=== PATIENT | female | born 1965 | race Caucasian/White ===

== ENCOUNTER 2017-07-23 09:39 | Emergency (ER) | payer OTHER ==
[~2017-07-23] VITALS: Ht 157.5 cm; Wt 85.0 kg
[2017-07-23 09:50] VITALS: Ht 157.5 cm; Wt 85.0 kg
[2017-07-23 11:23] LABS: BASOPHILS % 0.3 % (0.0-2.0); EOSINOPHILS # 0.1 10^3/ul (0.0-0.5); EOSINOPHILS % 0.7 % (0.0-7.0); HEMATOCRIT 34.1 % (37.0-47.0); HEMOGLOBIN 10.4 g/dl (12.0-16.0); LYMPHOCYTES # 1.5 10^3/ul (0.8-2.9); LYMPHOCYTES % 19.1 % (15.0-51.0); MEAN CORPUSCULAR HGB CONC 30.5 g/dl (32.0-37.0); MEAN PLATELET VOLUME 8.7 fl (7.4-10.4); MONOCYTE # 0.7 10^3/ul (0.3-0.9); MONOCYTES % 8.9 % (0.0-11.0); NEUTROPHIL # 5.4 10^3/ul (1.6-7.5); NEUTROPHILS % 70.6 % (39.0-77.0); PLATELET COUNT 477 10^3/UL (140-415); RED BLOOD COUNT 4.16 10^6/ul (4.20-5.40); RED CELL DISTRIBUTION WIDTH 15.9 % (11.5-14.5); WHITE BLOOD COUNT 7.7 10^3/ul (4.8-10.8)
--- NOTE | 2017-07-23 11:32 | RADRPT ---
PROCEDURE: XR Chest. CLINICAL INDICATION: Cough. TECHNIQUE: Single frontal view. COMPARISON: None. FINDINGS: The lungs are clear. The heart size is normal. There is no pleural effusion. There is no pneumothorax. IMPRESSION: 1. Normal chest radiograph. RPTAT: QQ .Shaheen Rebolledo MD, Date Time Electronically viewed and signed by .Shaheen Rebolledo MD, on 07/23/2017 11:32 .R/
[2017-07-23 11:43] LABS: ALBUMIN 3.5 g/dl (3.3-4.9); ALBUMIN/GLOBULIN RATIO 0.66; BILIRUBIN,INDIRECT 0.3 mg/dl (0-1.1); BILIRUBIN,TOTAL 0.3 mg/dl (0.2-1.3); CALCIUM 9.5 mg/dl (8.4-10.2); CREATININE 0.67 mg/dl (0.44-1.00); POTASSIUM 4.2 mmol/L (3.5-5.1); TOTAL PROTEIN 8.8 g/dl (6.1-8.1)
[2017-07-23 11:48] LABS: ADD UMIC YES; UR ASCORBIC ACID 40 mg/dL (NEGATIVE); UR BILIRUBIN (Dip) NEGATIVE (NEGATIVE); UR BLOOD (Dip) NEGATIVE (NEGATIVE); UR CLARITY SLIGHTLY CLOUDY (CLEAR); UR COLOR YELLOW (YELLOW); UR GLUCOSE (Dip) NEGATIVE (NEGATIVE); UR KETONES (Dip) TRACE mg/dL (NEGATIVE); UR LEUKOCYTE ESTERASE (Dip) TRACE Leu/ul (NEGATIVE); UR MUCUS MODERATE /HPF (NONE SEEN); UR NITRITE (Dip) NEGATIVE (NEGATIVE); UR RBC 1 /HPF (0-5); UR SPECIFIC GRAVITY (Dip) 1.023 (1.003-1.030); UR SQUAMOUS EPITHELIAL CELL MODERATE /HPF (FEW); UR TOTAL PROTEIN (Dip) 1+ mg/dl (NEGATIVE); UR UROBILINOGEN (Dip) 1+ mg/dL (NEGATIVE)
[2017-07-23] MEDS ORDERED: IBUP-1542 PO (12:00)
[2017-07-23] MEDS ORDERED: TRAM50TA2 PO (12:00)
[2017-07-23] MEDS ORDERED: KETOROLAC 60 MG INJ IM STA (12:05)
--- NOTE | 2017-07-23 12:08 | ERD ---
ER Documentation Chief Complaint Chief Complaint Complains of cough, colds and flu symptoms HPI This is a 51-year-old female presents to the ER with multiple complaints. Patient has had a cough over the last 3 weeks and states that she now has entire body pain and bilateral leg swelling. The pain is worse whenever she walks. Patient admits to tactile fevers at night she denies any chills. She also admits to sore throat. She tried ibuprofen for her pain however it does not work. She denies any trauma. She denies any weight loss. ROS 12 point review of systems was done, all negative except per HPI. Medications Home Meds Active Scripts Tramadol HCl (Tramadol HCl) 50 Mg Tablet, 50 MG PO Q4 Y for PAIN, #20 TAB Prov:MIRZA PARKS 07/23/17 Ibuprofen* (Motrin*) 600 Mg Tab, 600 MG PO Q6, #30 TAB Prov:MIRZA PARKS 07/23/17 Allergies Allergies: Coded Allergies: No Known Allergy (Unverified , 07/23/17) PMhx/Soc Medical and Surgical Hx: pt denies Medical Hx, pt denies Surgical Hx History of Surgery: No Anesthesia Reaction: No Hx Neurological Disorder: No Hx Respiratory Disorders: No Hx Cardiac Disorders: No Hx Psychiatric Problems: No Hx Miscellaneous Medical Probl: No Hx Alcohol Use: No Hx Substance Use: No Hx Tobacco Use: No Physical Exam Vitals Vital Signs Date Time Temp Pulse Resp B/P Pulse Ox O2 Delivery O2 Flow Rate FiO2 07/23/17 09:50 99.1 97 20 127/80 98 Physical Exam GENERAL: The patient is well developed and appropriate for usual state of health , in no apparent distress. HEENT: Atraumatic. Conjunctivae are pink. Pupils equal, round, and reactive to light. Extraocular muscles are grossly intact. Bilateral tympanic membranes are clear with no evidence of erythema, effusion or dulling of the light reflex. The oropharynx is clear with no erythema or exudates. NECK: C-spine is soft and supple. There is no cervical lymphadenopathy. CHEST: Clear to auscultation bilaterally. There are no rales, wheezes or rhonchi. HEART: Regular rate and rhythm. No murmurs, clicks, rubs or gallops. ABDOMEN: Soft, nontender and nondistended. Good bowel sounds. No rebound or guarding. No gross peritonitis. No gross organomegaly or masses. No Shaw sign or McBurney point tenderness. BACK: No midline or flank tenderness. EXTREMITIES: Equal pulses bilaterally. There is no peripheral clubbing, cyanosis or edema. No focal swelling or erythema. Full range of motion. Grossly neurovascularly intact. NEURO: Alert and oriented. Cranial nerves II through XII are intact. Motor strength in all 4 extremities with 5/5 strength. Sensation grossly intact. Normal speech and gait. SKIN: There is no apparent rash or petechia. The skin is warm and dry. Result Diagram: 07/23/17 1107 07/23/17 1107 Results 24 hrs Laboratory Tests Test 07/23/17 11:07 07/23/17 11:36 White Blood Count 7.710^3/ul Red Blood Count 4.1610^6/ul Hemoglobin 10.4g/dl Hematocrit 34.1% Mean Corpuscular Volume 82.0fl Mean Corpuscular Hemoglobin 25.0pg Mean Corpuscular Hemoglobin Concent 30.5g/dl Red Cell Distribution Width 15.9% Platelet Count 01197^3/UL Mean Platelet Volume 8.7fl Neutrophils % 70.6% Lymphocytes % 19.1% Monocytes % 8.9% Eosinophils % 0.7% Basophils % 0.3% Nucleated Red Blood Cells % 0.0/100WBC Neutrophils # 5.410^3/ul Lymphocytes # 1.510^3/ul Monocytes # 0.710^3/ul Eosinophils # 0.110^3/ul Basophils # 0.010^3/ul Nucleated Red Blood Cells # 0.010^3/ul Sodium Level 141mmol/L Potassium Level 4.2mmol/L Chloride Level 105mmol/L Carbon Dioxide Level 28mmol/L Anion Gap 12 Blood Urea Nitrogen 12mg/dl Creatinine 0.67mg/dl Glucose Level 120mg/dl Calcium Level 9.5mg/dl Total Bilirubin 0.3mg/dl Direct Bilirubin 0.00mg/dl Indirect Bilirubin 0.3mg/dl Aspartate Amino Transf (AST/SGOT) 20IU/L Alanine Aminotransferase (ALT/SGPT) 25IU/L Alkaline Phosphatase 85IU/L Total Protein 8.8g/dl Albumin 3.5g/dl Globulin 5.30g/dl Albumin/Globulin Ratio 0.66 Urine Color YELLOW Urine Clarity SLIGHTLY CLOUDY Urine pH 6.0 Urine Specific Eldred 1.023 Urine Ketones TRACEmg/dL Urine Nitrite NEGATIVEmg/dL Urine Bilirubin NEGATIVEmg/dL Urine Urobilinogen 1+mg/dL Urine Leukocyte Esterase TRACELeu/ul Urine Microscopic RBC 1/HPF Urine Microscopic WBC 2/HPF Urine Squamous Epithelial Cells MODERATE/HPF Urine Mucus MODERATE/HPF Urine Hemoglobin NEGATIVEmg/dL Urine Glucose NEGATIVEmg/dL Urine Total Protein 1+mg/dl [place] [id number] Radiology Main Line: [phone] DIAGNOSTIC IMAGING REPORT Patient: EZE HORTA : 1965 Age: 51 Sex: F MR #: [id number] DOS: 07/23/17 0000 Ordering MD: MIRZA PARKS PA-C Location: [facility] Room/Bed: PROCEDURE: XR Chest. CLINICAL INDICATION: Cough. TECHNIQUE: Single frontal view. COMPARISON: None. FINDINGS: The lungs are clear. The heart size is normal. There is no pleural effusion. There is no pneumothorax. IMPRESSION: 1. Normal chest radiograph. RPTAT: QQ .Shaheen Rebolledo MD, MD Date Time Electronically viewed and signed by .Shaheen Rebolledo MD, MD on 07/23/2017 11:32 .R/ CC: MIRZA PARKS Procedures/MDM This is a 51-year-old female presents to the ER with multiple complaints. Patient's body pain, is of unknown etiology however there is no evidence of infection at this time. Influenza swab was negative and there is evidence of pneumonia on x-ray. Patient does not have any electrolyte abnormalities or liver kidney dysfunction. There is no evidence of urinary tract infection. Patient does have a past medical history of arthritis, be related to the patient 's symptoms. Will be sent with ibuprofen and with tramadol. She was given Toradol in the ER for her pain and felt significantly better. Patient needs to follow-up with her primary care doctor within 1-2 days or return to ER sooner if symptoms worsen. My medical decision making shared with the patient she understands and agrees with plan. Departure Diagnosis: Primary Impression: Body aches Condition: Stable Patient Instructions: Myalgias Additional Instructions: Llame al doctor ZAY y fitz sharon PARVEEN PARA DENTRO DE 1-2 AZAR.Dgale a la secretaria que nosotros le instruimos hacer esta parveen.Avise o llame si umaña condicin se empeora antes de la parveen. Regresa aqui si peor o no mejor. MIRZA PARKS Jul 23, 2017 12:08
== END 2017-07-23 12:22 | disposition home or self-care (01) ==
LOC: FTE 09:39
DX: J02.9 Acute pharyngitis, unspecified (principal)
CPT/HCPCS: 36415; 71010; 80053; 81001; 85025; 87400; 96372; J1885; Z7502

== ENCOUNTER 2018-03-15 07:49 | Emergency (ER) | END 2018-03-15 10:28 | disposition home or self-care (01) ==